=== PATIENT | female | born 1975 | race Caucasian/White ===

== ENCOUNTER 2016-07-27 09:57 | Emergency (ER) | payer MEDICAID ==
[2016-07-27 10:44] LABS: BASOPHILS 0.7 % (0.0-2.0); EOSINOPHILS 0.7 % (0.0-6.0); HEMATOCRIT 41.4 % (36.0-48.0); HEMOGLOBIN 14.4 g/dL (12.0-16.0); LYMPHOCYTES 41.9 % (20.0-40.0); LYMPHOCYTES# 2.5 X 10^3uL (0.8-3.8); MEAN CELL VOLUME 90.4 fL (84.0-102.0); MEAN CORPUS. HGB CONCENTRATION 34.8 g/dL (32.0-36.0); MEAN CORPUSCULAR HEMOGLOBIN 31.4 pg (29.0-35.0); MEAN PLATELET VOLUME 7.3 fL (7.4-10.4); MONOCYTES 6.3 % (2.0-10.0); MONOCYTES# 0.4 X 10^3uL (0.2-1.0); NEUTROPHILS 50.4 % (54.0-75.0); NEUTROPHILS# 3.1 X 10^3uL (2.6-6.7); PLATELET COUNT 300 X 10^3uL (130-440); RED BLOOD COUNT 4.58 X 10^6uL (4.20-6.10); RED CELL DISTRIBUTION WIDTH 12.2 % (11.5-14.5)
[2016-07-27] MEDS ORDERED: ONDANSETRON HCL 4 MG/2 ML VIAL ONE (10:47)
[2016-07-27] MEDS ORDERED: NORMAL SALINE 1,000 ML IV ONE (10:48)
[2016-07-27] MEDS ORDERED: MULTIVITAMINS 10 ML VIAL IV ONE (10:48)
[2016-07-27] MEDS ORDERED: THIAMINE HCL 200 MG/2 ML VIAL ONE (10:48)
[2016-07-27] MEDS ORDERED: MAGNESIUM SULFATE 1 GM/2 ML VIAL ONE (10:48)
[2016-07-27 10:53] LABS: ALBUMIN 4.2 g/dL (3.5-5.0); ALKALINE PHOSPHATASE 35 U/L (38-126); ALT 43 U/L (9-52); AST 48 U/L (14-36); BILIRUBIN, DIRECT 0.2 mg/dL (0.0-0.4); BLOOD UREA NITROGEN 10 mg/dL (7-17); CALCIUM 8.2 mg/dL (8.4-10.2); CHLORIDE 108 mmol/L (98-107); CREATININE 0.8 mg/dL (0.5-1.0); EST GLOMERULAR FILTRATION RATE > 60 mL/min; GLUCOSE 83 mg/dL (70-100); LIPASE 90 U/L (23-300); POTASSIUM 3.6 mmol/L (3.5-5.1); SODIUM 141 mmol/L (137-145); TOTAL PROTEIN 7.3 g/dL (6.3-8.2)
--- NOTE | 2016-07-27 12:32 | ER NURSING DOCUMENTATION ---
Nurse's Notes [facility] Name:Julia Mcconnell Age:41 yrs Sex:Female :1975 Arrival Date:07/27/2016 Time:09:57 Bed4 Private MD: Diagnosis:Gastroenteritis Presentation: 07/27 10:02 Presenting complaint: Patient states: I now that I have severe dehydration. I have had cb diarrhea and vomiting for one week. Transition of care: Home. 10:02 Method Of Arrival: Private Vehicle cb 10:02 Acuity: INOCENCIO 3 cb Triage Assessment: 10:11 General: Appears in no apparent distress, well groomed, Behavior is cooperative. Pain: cb Denies pain. EENT: Denies nasal congestion. Neuro: Level of Consciousness is awake, Oriented to person, place, time, event. Cardiovascular: Pulses are 2+ in right radial artery. Respiratory: Airway is patent Trachea midline Respiratory effort is even, unlabored, Respiratory pattern is regular, symmetrical. GI: Reports diarrhea, nausea, vomiting. : Reports decrease unrine out put Denies burning with urination. Derm: Denies wounds or poor healing wounds. Musculoskeletal: No deficits noted. Historical: - Allergies: No known drug Allergies; - Home Meds: 1. gabapentin 300 mg oral tab daily 2. Pepto-Bismol Oral - PMHx: Shoulder pain ; ALCOHOLISM; - PSHx: None; - Tetanus: < 10 years. - Ebola Screening: : Patient negative for fever greater than or equal to 101.5 degrees Fahrenheit, and additional compatible Ebola Virus Disease symptoms. Patient denies exposure to infectious person. Patient denies travel to an Ebola-affected area in the 21 days before illness onset. No symptoms or risks identified at this time. . - Immunization history: Flu Vaccine None. - Social history: Smoking status: Patient states was never smoker of tobacco. Patient uses alcohol patient/guardian reports chronic longstanding heavy alcohol consumption. Screenin:15 Infectious Disease Risk None. Abuse screen: Denies threats or abuse. Denies injuries cb from another. Nutritional screening: No deficits noted. Assessment: 10:54 GI: Reports black stools but patient has been taking Pepto-Bismol. cb Vital Signs: 10:10 BP 125 / 89; Pulse 86; Resp 22; Temp 98.6(TE); Pulse Ox 94% on R/A; Weight 83.91 kg; cb Height 5 ft. 9 in. (175.26 cm); Pain 0/10; 10:56 BP 123 / 86; Pulse 86; Pulse Ox 94% on 2 lpm NC; cb 11:00 BP 122 / 80; Pulse 88; Pulse Ox 94% on 2 lpm NC; cb 11:30 BP 113 / 81; Pulse 84; Pulse Ox 96% on 2 lpm NC; cb 12:00 BP 122 / 86; Pulse 83; Pulse Ox 95% on 2 lpm NC; cb 10:10 Body Mass Index 27.32 (83.91 kg, 175.26 cm) cb ED Course: 09:58 Patient arrived in ED. ds 10:02 Molly Pruitt, RN is Primary Nurse. cb 10:06 Triage completed. cb 10:15 Valuables Remains with patient Patient has correct armband on for positive cb identification. Placed in gown. Bed in low position. Call light in reach. Pulse Ox - RN Monitoring Only NIBP On - RN Monitoring Only. Warm blanket given. Diet: Patient is NPO. 10:20 Notified ED Physician of patient's arrival and chief complaint. Dr. Nava notified. cb 10:24 Kalin Nava MD is Attending Physician. sc 10:25 Inserted peripheral IV: 18 gauge in left antecubital area and blood collected. cb 10:30 Labs drawn. (by ED staff). Sent per order to lab. cb 10:50 Oxygen Oxygen administration via nasal cannula @ 2L/min. cb 11:50 Assisted to bathroom. cb 12:12 Diet: Patient given water. Tolerated well. cb Administered Medications: 10:51 Drug: Zofran 4 mg; Route: IVP; Infused Over: 2 mins; Site: left antecubital; cb 12:31 Follow up: Response: Nausea is decreased cb 10:51 Drug: Banana Bag - (NS 0.9% 1000 ml, folic acid 600 mcg, Thiamine 100 mg, Multivitamin cb 10 ml, Magnesium Sulfate 1 grams); Route: IV; Rate: calculated rate; Site: left antecubital; 11:13 Follow up: IV Status: Infusion continued; IV Intake: 1000ml cb 11:13 Drug: NS 0.9% 1000 ml; Route: IV; Rate: bolus; Site: left antecubital; cb 12:15 Follow up: IV Status: Completed infusion; IV Intake: 1000ml cb Point of Care Testing: Urine Dip: 12:03 pH: 5.5; ; Specific [place]: 1.010; Ketones: Negative; Glucose: Negative; Protein: cb Negative; Leukocytes: Negative; Nitrite: Negative ; Blood: Non Hemolyzed Trace; Bilirubin: Negative ; Urobilinogen: Normal Intake: 11:13 IV: 1000ml; Total: 1000ml. cb 12:15 IV: 1000ml; Total: 2000ml. cb Outcome: 12:18 IV D/Richie cb 12:18 Discharge ordered by . ca 12:28 Discharged to home ambulatory. cb 12:28 Condition: stable 12:28 Discharge Assessment: Patient awake, alert and oriented x 3. No cognitive and/or functional deficits noted. Patient verbalized understanding of disposition instructions. 12:28 Discharge instructions given to patient, Instructed on discharge instructions, follow up and referral plans. medication usage, Demonstrated understanding of instructions, medications, Prescriptions given X 1. 12:32 Patient left the ED. cb 07/29 08:44 Discharge F/U Call: Spoke with: patient. Overall Care on a scale of 1-10 with 10 ke being the best care, you rate our care as: Other comments: Very satisfied "you guys are great!" What is the one thing you feel we could do to improve? Patient's answer: Feeling much better! Signatures: Molly Pruitt, DARRION MAIER cb Srot, Jaye, Reg Reg Kalin Cooper MD MD sc Evens, Kerry, RN RN ke
--- NOTE | 2016-07-27 12:32 | ER PHYSICIAN DOCUMENTATION ---
Physician Documentation [facility] Name:Julia Mcconnell Age:41 yrs Sex:Female :1975 Arrival Date:07/27/2016 Time:09:57 Bed4 Private MD: Kalin Julien Disposition: 07/27/16 12:18 Discharged to Home/Self Care. Impression: Gastroenteritis. - Condition is Good. - Discharge Instructions: GASTROENTERITIS, Viral [5y-Adult]. - Prescriptions for Zofran 4 mg Oral Tablet - take 1 tablet by ORAL route every 12 hours .; 20 tablet. - Medical Reconciliation form form. - Follow up: Private Physician; When: 7 - 10 days; Reason: Recheck today's complaints. - Problem is new. - Symptoms have improved. HPI: 07/27 12:02 This 41 yrs old Female presents to ER via Private Vehicle with complaints of sc Nausea/Vomiting. 12:02 The patient presents to the emergency department with nausea, with vomiting, with sc diarrhea, without any complaints of abdominal pain. Onset: The symptom(s)/episode began/occurred gradually, 3 day(s) ago. Possible causes: sick contacts, by co-worker(s). Associated signs and symptoms: Pertinent positives: diarrhea, nausea, vomiting. Severity of symptoms: At their worst the symptoms were moderate. Historical: - Allergies: No known drug Allergies; - Home Meds: 1. gabapentin 300 mg oral tab daily 2. Pepto-Bismol Oral - PMHx: Shoulder pain ; ALCOHOLISM; - PSHx: None; - Tetanus: < 10 years. - Ebola Screening: : Patient negative for fever greater than or equal to 101.5 degrees Fahrenheit, and additional compatible Ebola Virus Disease symptoms. Patient denies exposure to infectious person. Patient denies travel to an Ebola-affected area in the 21 days before illness onset. No symptoms or risks identified at this time. . - Immunization history: Flu Vaccine None. - Social history: Smoking status: Patient states was never smoker of tobacco. Patient uses alcohol patient/guardian reports chronic longstanding heavy alcohol consumption. ROS: 12:04 Eyes: Negative for injury, pain, redness, and discharge. sc ENT: Negative for injury, pain, and discharge. Neck: Negative for injury, pain, and swelling. Cardiovascular: Negative for chest pain, palpitations, and edema. Respiratory: Negative for shortness of breath, cough, wheezing, and pleuritic chest pain. Back: Negative for injury and pain. MS/Extremity: Negative for injury and deformity. Skin: Negative for injury, rash, and discoloration. 12:04 Neuro: Negative for headache, weakness, numbness, tingling, and seizure. sc 12:04 Constitutional: Positive for fatigue, malaise. 12:04 Abdomen/GI: Positive for nausea, vomiting, diarrhea, Negative for abdominal pain. Exam: Constitutional: This is a well developed, well nourished patient who is awake, alert, and in no acute distress. Head/Face: Normocephalic, atraumatic. Eyes: Pupils equal round and reactive to light, extra-ocular motions intact. Lids and lashes normal. Conjunctiva and sclera are non-icteric and not injected. Cornea within normal limits. Periorbital areas with no swelling, redness, or edema. Neck: Trachea midline, no thyromegaly or masses palpated, and no cervical lymphadenopathy. Supple, full range of motion without nuchal rigidity, or vertebral point tenderness. No meningismus. Chest/axilla: Normal chest wall appearance and motion. Nontender with no deformity. No lesions are appreciated. Cardiovascular: Regular rate and rhythm with a normal S1 and S2. No gallops, murmurs, or rubs. Normal PMI, no JVD. No pulse deficits. Respiratory: Lungs have equal breath sounds bilaterally, clear to auscultation and percussion. No rales, rhonchi or wheezes noted. No increased work of breathing, no retractions or nasal flaring. Abdomen/GI: Soft, non-tender, with normal bowel sounds. No distension or tympany. No guarding or rebound. No evidence of tenderness throughout. Back: No spinal tenderness. No costovertebral tenderness. Full range of motion. 12:04 Neuro: Awake and alert, GCS 15, oriented to person, place, time, and situation. vt Cranial nerves II-XII grossly intact. Motor strength 5/5 in all extremities. Sensory grossly intact. Cerebellar exam normal. Normal gait. 12:04 ENT: Mouth: Oral mucosa: dry. 12:04 Skin: Turgor: is poor. Vital Signs: 10:10 BP 125 / 89; Pulse 86; Resp 22; Temp 98.6(TE); Pulse Ox 94% on R/A; Weight 83.91 kg; cb Height 5 ft. 9 in. (175.26 cm); Pain 0/10; 10:56 BP 123 / 86; Pulse 86; Pulse Ox 94% on 2 lpm NC; cb 11:00 BP 122 / 80; Pulse 88; Pulse Ox 94% on 2 lpm NC; cb 11:30 BP 113 / 81; Pulse 84; Pulse Ox 96% on 2 lpm NC; cb 12:00 BP 122 / 86; Pulse 83; Pulse Ox 95% on 2 lpm NC; cb 10:10 Body Mass Index 27.32 (83.91 kg, 175.26 cm) cb MDM: 10:47 Patient medically screened. vt 12:05 Differential diagnosis: viral gastroenteritis, gastroenteritis. Data reviewed: vital sc signs, nurses notes, lab test result(s), and as a result, I will discharge patient. Counseling: I had a detailed discussion with the patient and/or guardian regarding: the historical points, exam findings, and any diagnostic results supporting the discharge/admit diagnosis, lab results, the need for outpatient follow up, to return to the emergency department if symptoms worsen or persist or if there are any questions or concerns that arise at home. Medication response: The patient's symptoms have improved. 07/27 10:48 Order name: CBC AUTO DIF, MDIF/RMOR IF IND; Complete Time: 11:27 EDOR 07/27 10:48 Interpretation: Normal. vt 07/27 10:56 Order name: BASIC METABOLIC PANEL; Complete Time: 11:27 EDOR 07/27 11:27 Interpretation: Normal. vt 07/27 10:56 Order name: HEPATIC PANEL; Complete Time: 11:27 EDMS 07/27 11:27 Interpretation: Normal. vt 07/27 10:56 Order name: LIPASE; Complete Time: 11:27 EDMS 07/27 11:27 Interpretation: Normal. vt 07/27 11:06 Order name: HCG, SERUM; Complete Time: 11:27 EDOR 07/27 11:27 Interpretation: Normal. vt 07/27 11:11 Order name: Oxygen; Complete Time: 11:11 cb Dispensed Medications: 10:51 Drug: Zofran 4 mg; Route: IVP; Infused Over: 2 mins; Site: left antecubital; cb 12:31 Follow up: Response: Nausea is decreased cb 10:51 Drug: Banana Bag - (NS 0.9% 1000 ml, folic acid 600 mcg, Thiamine 100 mg, Multivitamin cb 10 ml, Magnesium Sulfate 1 grams); Route: IV; Rate: calculated rate; Site: left antecubital; 11:13 Follow up: IV Status: Infusion continued; IV Intake: 1000ml cb 11:13 Drug: NS 0.9% 1000 ml; Route: IV; Rate: bolus; Site: left antecubital; cb 12:15 Follow up: IV Status: Completed infusion; IV Intake: 1000ml cb Point of Care Testing: Urine Dip: 12:03 pH: 5.5; ; Specific [place]: 1.010; Ketones: Negative; Glucose: Negative; Protein: cb Negative; Leukocytes: Negative; Nitrite: Negative ; Blood: Non Hemolyzed Trace; Bilirubin: Negative ; Urobilinogen: Normal Signatures: Molly Pruitt RN RN cb Chew, Scott, MD MD vt
== END 2016-07-27 12:32 | disposition home or self-care (01) ==
LOC: ER 09:57
DX: K52.89 Other specified noninfective gastroenteritis and colitis (principal); E86.0 Dehydration; R53.83 Other fatigue; R53.81 Other malaise; Z79.899 Other long term (current) drug therapy
CPT/HCPCS: 80048; 80076; 83690; 84703; 85025; 96361; 96365; 96375; 99284; J2405; J3475; J7030

== ENCOUNTER 2016-08-24 07:45 | Emergency (ER) | payer MEDICAID ==
[2016-08-24] MEDS ORDERED: MAGNESIUM SULFATE 1 GM/2 ML VIAL ONE (08:30)
[2016-08-24] MEDS ORDERED: THIAMINE HCL 200 MG/2 ML VIAL ONE (08:30)
[2016-08-24] MEDS ORDERED: MULTIVITAMINS 10 ML VIAL IV ONE (08:31)
[2016-08-24] MEDS ORDERED: NORMAL SALINE 1,000 ML IV ONE (08:31)
[2016-08-24] MEDS ORDERED: ONDANSETRON HCL 4 MG/2 ML VIAL ONE (08:31)
[2016-08-24 08:42] LABS: BLOOD UREA NITROGEN 7 mg/dL (7-17); CALCIUM 9.3 mg/dL (8.4-10.2); CHLORIDE 103 mmol/L (98-107); CREATININE 0.9 mg/dL (0.5-1.0); EST GLOMERULAR FILTRATION RATE > 60 mL/min; ETHYL ALCOHOL 143 mg/dL (<10); GLUCOSE 99 mg/dL (70-100); SODIUM 139 mmol/L (137-145)
[2016-08-24] MEDS ORDERED: CHLORDIAZEPOXIDE 25 MG CAPSULE PO ONE (08:58)
[2016-08-24] MEDS ORDERED: CHLORDIAZEPOXIDE 25 MG PO ONE (09:13)
--- NOTE | 2016-08-24 10:44 | ER PHYSICIAN DOCUMENTATION ---
Physician Documentation [facility] Name:Julia Mcconnell Age:41 yrs Sex:Female :1975 Arrival Date:08/24/2016 Time:07:45 Bed1 Private MD:Kasandra [facility] ED PhysicianJellyAsif Disposition: 08/24/16 09:07 Discharged to Other. Impression: Alcohol Intoxication, Dependence Acute, Dehydration. - Condition is Fair. - Discharge Instructions: DEHYDRATION (5y-Adult), Abuse, Alcohol - ALCOHOL INTOXICATION. - Medical Reconciliation form form. - Follow up: [facility]; When: 7 - 10 days; Reason: Recheck today's complaints, Continuance of care. - Problem is an acute exacerbation. - Symptoms have improved. - Notes: Take Librium 50mg by mouth every 6 hours for the first day then 25mg by mouth every 6 hours for the next 2 days... Drink 2 - 3 quarts of water or Gatorade every day... Start going to AA TWICE a day....and see your sponsor regularly. HPI: 08/25 08:40 This 41 yrs old Female presents to ER via Private Vehicle with complaints of cd ETOH Intoxication, dehydration, nausea / vomiting. 08:40 The patient presents to the emergency department after a known overdose. Context: cd Method: the patient has a confirmed or suspected ingestion, of alcohol, Time: last 3 - 5 days has been drinking heavily, Extent: severe ingestion, the OD/poisoning occurred at at home, and was witnessed no one, Psychiatric history: the patient has a known psychiatric disorder, depression, Previous OD/poisoning history: yes. Associated signs and symptoms: Pertinent positives: depression, nausea, vomiting. Severity of symptoms: At their worst the symptoms were moderate in the emergency department the symptoms are unchanged. The patient has experienced similar episodes in the past. Historical: - Allergies: No known drug Allergies; - Home Meds: 1. gabapentin oral - PMHx: broken elbow ; - PSHx: None; - Tetanus: < 10 years. - Ebola Screening: : Patient negative for fever greater than or equal to 101.5 degrees Fahrenheit, and additional compatible Ebola Virus Disease symptoms. Patient denies exposure to infectious person. Patient denies travel to an Ebola-affected area in the 21 days before illness onset. No symptoms or risks identified at this time. . - Immunization history: Flu Vaccine None. - Social history: Smoking status: Patient states was never smoker of tobacco. ROS: 08/24 07:55 Constitutional: Positive for poor PO intake, Negative for chills, fever. cd Cardiovascular: Negative for chest pain, palpitations. Respiratory: Negative for cough, shortness of breath. Abdomen/GI: Positive for nausea, vomiting, anorexia, Negative for abdominal pain, diarrhea, constipation, abdominal distension, hematemesis, black/tarry stool, rectal bleeding. Neuro: Negative for altered mental status, headache, seizure activity. All other systems are negative. Exam: 07:55 Eyes: Pupils equal round and reactive to light, extra-ocular motions intact. Lids and cd lashes normal. Conjunctiva and sclera are non-icteric and not injected. Cornea within normal limits. Periorbital areas with no swelling, redness, or edema. ENT: Nares patent. No nasal discharge, no septal abnormalities noted. Tympanic membranes are normal and external auditory canals are clear. Oropharynx with no redness, swelling, or masses, exudates, or evidence of obstruction, uvula midline. Mucous membranes dry. 07:55 Neck: Trachea midline, no thyromegaly or masses palpated, and no cervical cd lymphadenopathy. Supple, full range of motion without nuchal rigidity, or vertebral point tenderness. No Meningismus. 07:55 Constitutional: The patient appears alert, awake, non-diaphoretic, non-toxic, well developed, well nourished, anxious. 07:55 Cardiovascular: Rate: normal, Rhythm: irregular, Pulses: no pulse deficits are appreciated. 07:55 Respiratory: Respirations: normal, Breath sounds: are normal. 07:55 Abdomen/GI: Inspection: abdomen appears normal, Bowel sounds: normal, Palpation: abdomen is soft and non-tender. 07:55 Neuro: Orientation: is normal, to person, place & time. Cranial nerves: CN II- XII are normal as tested, Cerebellar function: is grossly normal, Motor: moves all fours. 07:55 Psych: Behavior/mood is pleasant, cooperative, anxious, depressed, Affect is flat, Patient has no thoughts/intents to harm self or others. Vital Signs: 08:00 BP 149 / 107; Pulse 94; Resp 24; Temp 98.1(TE); Pulse Ox 92% on R/A; Weight 83.91 kg; cb Height 5 ft. 9 in. (175.26 cm); Pain 5/10; 08:36 BP 155 / 108; Pulse 109; Resp 20; Pulse Ox 89% on R/A; cb 09:00 BP 133 / 102; cb 09:18 BP 150 / 102; Pulse 95; Pulse Ox 93% on 2 lpm NC; cb 09:30 BP 134 / 90; cb 10:00 BP 130 / 85; cb 08:00 Body Mass Index 27.32 (83.91 kg, 175.26 cm) cb Anali Coma Score: 07:55 Eye Response: spontaneous(4). Verbal Response: oriented(5). Motor Response: obeys cd commands(6). Total: 15. MDM: 08:56 Patient medically screened. cd 09:10 Data reviewed: vital signs, nurses notes, old medical records, lab test result(s), and cd as a result, I will discharge patient. Data interpreted: Pulse oximetry: on room air is 93 %. Interpretation: normal. 09:15 Counseling: I had a detailed discussion with the patient and/or guardian regarding: the cd historical points, exam findings, and any diagnostic results supporting the discharge/admit diagnosis, lab results, the need for outpatient follow up, for a recheck, with the patient's primary care provider, I have suggested and the patient agrees with going to [facility] for Detox off ETOH. I will prescribe Librium for her for her stay, to return to the emergency department if symptoms worsen or persist or if there are any questions or concerns that arise at home. Response to treatment: the patient's symptoms have markedly improved after treatment, and as a result, I will discharge patient. 08/24 08:44 Order name: BASIC METABOLIC PANEL; Complete Time: 09:01 EDMS 08/24 09:01 Interpretation: Normal. cd 08/24 08:44 Order name: ETHYL ALCOHOL; Complete Time: 09:01 EDMS 08/24 09:01 Interpretation: Abnormal: ETHYL ALCOHOL 143. cd 08/24 08:07 Order name: I & O; Complete Time: 08:07 cb 08/24 08:07 Order name: NPO; Complete Time: 08:07 cb 08/24 08:07 Order name: Pulse Ox Continuous; Complete Time: 08:07 cb 08/24 08:08 Order name: Iv Saline Lock; Complete Time: 08:19 cb 08/24 08:47 Order name: Oxygen; Complete Time: 09:20 cb Dispensed Medications: 08:25 Drug: Zofran 4 mg; Route: IVP; Infused Over: 2 mins; Site: left wrist; cb 09:20 Follow up: Response: Nausea is decreased cb 08:30 Drug: Banana Bag - (NS 0.9% 1000 ml, folic acid 600 mcg, Thiamine 100 mg, Multivitamin cb 10 ml, Magnesium Sulfate 1 grams); Route: IV; Rate: calculated rate; Site: left wrist; 09:19 Follow up: IV Status: Infusion continued; IV Intake: 1000ml cb 08:52 Drug: librium - chlordiazePOXIDE 50 mg; Route: PO; cb 09:20 Follow up: Response: No adverse reaction cb 09:20 Drug: NS 0.9% 1000 ml; Route: IV; Rate: bolus; Site: left wrist; cb 10:00 Follow up: IV Status: Completed infusion; IV Intake: 1000ml cb 09:20 Not Given (Duplicate Order): NS 0.9% 1000 ml IV at bolus once cb 10:17 Drug: Librium - chlordiazePOXIDE 25mg 50 mg; Route: PO; cb 10:18 Follow up: Response: Pharmacy closed - take home med pack cb Point of Care Testing: Urine Dip: 09:27 pH: 6.0; ; Specific [place]: 1.010; Ketones: Negative; Glucose: Negative; Protein: cb Negative; Leukocytes: Negative; Nitrite: Negative ; Blood: Small (+); Bilirubin: Negative ; Urobilinogen: Normal Signatures: Molly Pruitt RN RN Asif Callejas MD MD cd
--- NOTE | 2016-08-24 10:44 | ER NURSING DOCUMENTATION ---
Nurse's Notes [facility] Name:Julia Mcconnell Age:41 yrs Sex:Female :1975 Arrival Date:08/24/2016 Time:07:45 Bed1 Private MD:Kasandra [facility] Diagnosis:Alcohol Intoxication, Dependence Acute;Dehydration Presentation: 08/24 07:50 Presenting complaint: Patient states: dehydration, was exposed to URI last , cb last vomited yesterday. Transition of care: Home. 07:50 Method Of Arrival: Private Vehicle cb 07:50 Acuity: INOCENCIO 3 cb Triage Assessment: 07:54 General: Appears in no apparent distress, well groomed, Behavior is cooperative. Pain: cb Complains of pain in occipital area Pain currently is 5 out of 10 on a pain scale. EENT: Denies nasal congestion. Neuro: Level of Consciousness is awake, alert, Oriented to person, place, time. Cardiovascular: Pulses are 2+ in right radial artery. Respiratory: Airway is patent Trachea midline Respiratory effort is even, unlabored, Respiratory pattern is regular, symmetrical. GI: Reports vomiting, yesterday afternoon. : Reports burning with urination. Derm: Denies open wounds. Musculoskeletal: No deficits noted. Historical: - Allergies: No known drug Allergies; - Home Meds: 1. gabapentin oral - PMHx: broken elbow ; - PSHx: None; - Tetanus: < 10 years. - Ebola Screening: : Patient negative for fever greater than or equal to 101.5 degrees Fahrenheit, and additional compatible Ebola Virus Disease symptoms. Patient denies exposure to infectious person. Patient denies travel to an Ebola-affected area in the 21 days before illness onset. No symptoms or risks identified at this time. . - Immunization history: Flu Vaccine None. - Social history: Smoking status: Patient states was never smoker of tobacco. Screenin:38 Infectious Disease Risk None. Abuse screen: Denies threats or abuse. Denies injuries cb from another. Nutritional screening: No deficits noted. 10:22 Suicide Risk Assessment: Suicidal Thinking Present - No ( 0 points), Lives Alone - Yes cb (1 point). Vital Signs: 08:00 BP 149 / 107; Pulse 94; Resp 24; Temp 98.1(TE); Pulse Ox 92% on R/A; Weight 83.91 kg; cb Height 5 ft. 9 in. (175.26 cm); Pain 5/10; 08:36 BP 155 / 108; Pulse 109; Resp 20; Pulse Ox 89% on R/A; cb 09:00 BP 133 / 102; cb 09:18 BP 150 / 102; Pulse 95; Pulse Ox 93% on 2 lpm NC; cb 09:30 BP 134 / 90; cb 10:00 BP 130 / 85; cb 08:00 Body Mass Index 27.32 (83.91 kg, 175.26 cm) cb [place] Coma Score: 07:55 Eye Response: spontaneous(4). Verbal Response: oriented(5). Motor Response: obeys cd commands(6). Total: 15. ED Course: 07:46 Patient arrived in ED. ds 07:46 [facility] is Private Physician. ds 07:50 Molly Pruitt, RN is Primary Nurse. cb 07:52 Triage completed. cb 08:05 Notified ED Physician of patient's arrival and chief complaint. Dr. Reaves notified. cb 08:20 Oxygen Oxygen administration via nasal cannula @ 2L/min. cb 08:38 Valuables Remains with patient Patient has correct armband on for positive cb identification. Placed in gown. Bed in low position. Call light in reach. Side rails up X2. Pulse ox on. NIBP on. Door closed. Warm blanket given. Diet: Patient is NPO. 08:39 Inserted peripheral IV: 18 gauge in left Wrist and blood collected. cb 08:39 Labs drawn. (by ED staff). Sent per order to lab. cb 08:56 Asif Reaves MD is Attending Physician. cd 09:04 [facility] is Referral Physician. cd 09:25 Assisted to bathroom. cb 09:26 Urine collected. Clean catch specimen. cb Administered Medications: 08:25 Drug: Zofran 4 mg; Route: IVP; Infused Over: 2 mins; Site: left wrist; cb 09:20 Follow up: Response: Nausea is decreased cb 08:30 Drug: Banana Bag - (NS 0.9% 1000 ml, folic acid 600 mcg, Thiamine 100 mg, Multivitamin cb 10 ml, Magnesium Sulfate 1 grams); Route: IV; Rate: calculated rate; Site: left wrist; 09:19 Follow up: IV Status: Infusion continued; IV Intake: 1000ml cb 08:52 Drug: librium - chlordiazePOXIDE 50 mg; Route: PO; cb 09:20 Follow up: Response: No adverse reaction cb 09:20 Drug: NS 0.9% 1000 ml; Route: IV; Rate: bolus; Site: left wrist; cb 10:00 Follow up: IV Status: Completed infusion; IV Intake: 1000ml cb 09:20 Not Given (Duplicate Order): NS 0.9% 1000 ml IV at bolus once cb 10:17 Drug: Librium - chlordiazePOXIDE 25mg 50 mg; Route: PO; cb 10:18 Follow up: Response: Pharmacy closed - take home med pack cb Point of Care Testing: Urine Dip: 09:27 pH: 6.0; ; Specific [place]: 1.010; Ketones: Negative; Glucose: Negative; Protein: cb Negative; Leukocytes: Negative; Nitrite: Negative ; Blood: Small (+); Bilirubin: Negative ; Urobilinogen: Normal Intake: 09:19 IV: 1000ml; Total: 1000ml. cb 10:00 IV: 1000ml; Total: 2000ml. cb Outcome: 09:07 Discharge ordered by . cd 10:22 Discharged to [facility] cb 10:22 Condition: stable 10:22 Discharge Assessment: Patient awake, alert and oriented x 3. No cognitive and/or functional deficits noted. Patient verbalized understanding of disposition instructions. 10:22 Discharge instructions given to patient, Instructed on discharge instructions, follow up and referral plans. medication usage, Demonstrated understanding of instructions, medications. 10:22 IV D/Richie 10:43 Patient left the ED. cb Signatures: Molly Pruitt RN RN cb Lu, Jaye, Zaire Reg Asif Dickerson MD MD cd
== END 2016-08-24 10:44 | disposition other institution (70) ==
LOC: ER 07:45
DX: F10.229 Alcohol dependence with intoxication, unspecified (principal); E86.0 Dehydration; R11.2 Nausea with vomiting, unspecified; Z79.899 Other long term (current) drug therapy
CPT/HCPCS: 80048; 80320; 96361; 96365; 96375; 99284; J2405; J3475; J7030